=== PATIENT | female | born 1980 | race Caucasian/White ===

== ENCOUNTER → 2016-12-25 | Outpatient (CLI) | payer BC ==
[~2016-12-25] VITALS: Ht 175.3 cm; Wt 120.2 kg
[~2016-12-25] MED LIST: PRENTAB26 PO; ZNTT/150 PO
[2016-12-25 13:50] VITALS: BP 136/87; PULSE 108; Ht 175.3 cm; Wt 120.2 kg
== END | disposition home or self-care (01) ==
LOC: C.NEUR 12:23
PROVIDERS: ATTEND Internal Medicine Pulmonary Disease
DX: G47.30 Sleep apnea, unspecified (principal); J45.909 Unspecified asthma, uncomplicated

== ENCOUNTER → 2017-09-11 | Outpatient (CLI) | payer BC | END | disposition home or self-care (01) | LOC: C.PAPS 12:15 | PROVIDERS: ATTEND Physician Assistant | DX: Z01.419 Encounter for gynecological examination (general) (routine) without abnormal findings (principal); Z97.5 Presence of (intrauterine) contraceptive device ==